=== PATIENT | female | born 1965 | race African-American/Black ===

== ENCOUNTER 2017-04-03 20:20 | Observation (INO) | payer OTHER ==
[~2017-04-03] VITALS: Ht 157.5 cm; Wt 100.7 kg
--- NOTE | 2017-04-03 20:46 | NUR ---
RECEIVED 51 YO FEMALE C/O SYNCOPE EPISODE OBOUT ONE HOUR PSYCHIATRIC ARNP. PT DENIES FEELING DIZZY PRIOR TO PASSING OUT. NO C/O CHEST PAIN. PT REPORTS MILD SHORTNESS OF BREATH.
--- NOTE | 2017-04-03 20:48 | NUR ---
EKG DONE PRIOR TO TRIAGE
[2017-04-03 21:18] LABS: ABSOLUTE BASOPHIL COUNT 0.1 /CUMM (0.0-0.2); ABSOLUTE EOSINOPHIL COUNT 0.1 /CUMM (0.0-0.7); ABSOLUTE GRANULOCYTE CT 4.5 /CUMM (1.4-6.5); ABSOLUTE LYMPH COUNT 3.7 /CUMM (1.2-3.4); ABSOLUTE MONOCYTE COUNT 0.7 /CUMM (0.10-0.60); BASOPHIL % 0.6 % (0.0-2.0); EOSINOPHIL % 1.5 % (0-5); GRANULOCYTE % 49.3 % (42.2-75.2); HEMATOCRIT 39.2 % (37-47); MEAN CORPUSCULAR HGB 28.2 PG (27.0-31.0); MEAN CORPUSCULAR HGB CONC 32.7 G/DL (33.0-37.0); MEAN CORPUSCULAR VOLUME 86.5 FL (81.0-99.0); MEAN PLATELET VOLUME 10.8 FL (7.4-10.4); PLATELET COUNT 239 /CUMM (130-400); RBC DISTRIBUTION WIDTH 13.8 % (11.5-14.5); RED BLOOD CELL CT 4.53 /CUMM (4.20-5.40)
--- NOTE | 2017-04-03 21:18 | ED SYNCOPE COMPLAINT ---
See Addendum History of Present Illness General Chief Complaint: Syncope and Near-Syncope Stated Complaint: SYNCOPE Source: patient, family Exam Limitations: no limitations Vital Signs & Intake/Output Vital Signs & Intake/Output Vital Signs Date Time Temp Pulse Resp B/P B/P Pulse O2 O2 Flow FiO2 Mean Ox Delivery Rate 04/04 0635 97.1 72 16 150/65 99 04/04 0025 97.0 70 20 145/74 98 04/034 Room Air 04/03 2234 97.5 73 18 154/76 97 Room Air 04/03 204 98.8 81 171/85 98 Room Air ED Intake and Output 04/04 0000 04/03 1200 Intake Total Output Total Balance Patient 222 lb Weight Allergies Coded Allergies: No Known Allergies (04/03/17) Triage Note: RECEIVED 51 YO FEMALE C/O SYNCOPE EPISODE OBOUT ONE HOUR REHAB TECH. PT DENIES FEELING DIZZY PRIOR TO PASSING OUT. NO C/O CHEST PAIN. PT REPORTS MILD SHORTNESS OF BREATH. Triage Nurses Notes Reviewed? yes Timing: single episode today Precipitating Factors: CLIMBED 2 FLIGHTS OF STAIRS Episode Description: SEE HPI Loss of Consciousness: prolonged (minutes) Associated Symptoms: shortness of breath, PALPITATIONS HPI: This is a 51-year-old female with history of hypertension and high cholesterol, recently came from [place] in the beginning of March presents to the ER for chief complaint syncopal episode. According to the patient and her son she had climbed up 2 flights of stairs in the basement. The top of the stairs she felt dizzy, short of breath and anxious, and c/o palpitations. She states she then sat down because she felt like she going to pass out son states that she passed out for a minute. She was not diaphoretic. Patient states that she was not confused. No history of sick B before. Denies any chest pain. She is not short of breath right now. Denies any leg pain or cramping. No history of previous DVT or PE. No history of SD in the past before. She is a nonsmoker nondrinker. (FAITH PINTO,LUISA) Past History Travel History Traveled to [place] past 21 day No Medical History Any Pertinent Medical History? see below for history Neurological: NONE EENT: NONE Cardiovascular: hypertension, hyperlipidemia Respiratory: NONE Gastrointestinal: NONE Hepatic: NONE Renal: NONE Musculoskeletal: NONE Psychiatric: NONE Endocrine: NONE Blood Disorders: NONE Cancer(s): NONE Surgical History Surgical History: non-contributory Psychosocial History What is your primary language Korean Tobacco Use: Never used Family History Hx Contributory? No (LUISA CUEVAS MD) Review of Systems Review of Systems Constitutional: Denies: chills, diaphoresis, malaise. EENTM: Reports: no symptoms. Respiratory: Reports: short of breath. Denies: cough, sputum production. Cardiovascular: Reports: palpitations, syncope. Denies: chest pain, peripheral edema. GI: Denies: abdominal pain, nausea, vomiting. Genitourinary: Denies: discharge. Musculoskeletal: Denies: back pain. Skin: Reports: no symptoms. Neurological/Psychological: Denies: ataxia. All Other Systems: Reviewed and Negative (LUISA CUEVAS MD) Physical Exam Physical Exam General Appearance: well developed/nourished, alert, awake Head: atraumatic, normal appearance Eyes: Bilateral: normal appearance, PERRL, EOMI. Ears, Nose, Throat: normal pharynx, hearing grossly normal Neck: normal inspection, supple, full range of motion Respiratory: normal breath sounds, chest non-tender, no respiratory distress Cardiovascular: regular rate/rhythm Gastrointestinal: normal bowel sounds, soft, non-tender Back: normal inspection, normal range of motion Extremities: normal inspection, normal capillary refill, normal range of motion, no edema Psychiatric: awake, alert, oriented x 3 Cranial Nerves: PERRL Coordination/Gait: normal gait Motor/Sensory: no motor/sensory deficits Core Measures ACS in differential dx? Yes CVA/TIA Diagnosis: No Severe Sepsis Present: No Septic Shock Present: No (LUISA CUEVAS MD) Progress Differential Diagnosis: aortic dissection, orthostatic syncope, pulmonary embolus, TIA/CVA, ARHYTHMIA Plan of Care: Orders Procedure Date/time Status Heart Healthy Diet 04/04 B Active Discharge Patient 04/04 0917 Active TROPONIN LEVEL 04/04 043 Complete EKG 04/[address] in observation 04/03 2245 Active ED Holding Orders 04/03 2245 Active Patient Data 04/03 2245 Active Vital Signs 04/03 2245 Active Code Status 04/03 2245 Active Intake & Output 04/03 2200 Active Add-on Test (ER Only) 04/03 2131 Active PARTIAL THROMBOPLASTIN TIME 04/03 2057 Complete PROTHROMBIN TIME 04/03 2057 Complete D-DIMER 04/03 2057 Complete THYROID STIMULATING HORMONE 04/03 2056 Complete MISTAKE 04/03 2041 Active FingerStick- Glucose 04/03 2041 Active TROPONIN LEVEL 04/03 2041 Complete COMPREHENSIVE METABOLIC PANEL 04/03 2041 Complete CBC WITHOUT DIFFERENTIAL 04/03 2041 Complete EKG 04/03 2023 Active Laboratory Tests 04/04/17 0445: Troponin I < 0.01 04/03/172056: PT 10.3, INR 0.98, APTT 30, D-Dimer < 200 04/03/172055: Anion Gap 11, Estimated GFR > 60, BUN/Creatinine Ratio 23.8, Glucose 132 H, Calcium 10.0, Total Bilirubin 0.3, AST 43 H, ALT 60 H, Alkaline Phosphatase 109, Troponin I < 0.01, Total Protein 8.4 H, Albumin 4.7, Globulin 3.7, Albumin /Globulin Ratio 1.3, TSH 5.960 H, CBC w Diff NO MAN DIFF REQ, RBC 4.53, MCV 86.5, MCH 28.2, RDW 13.8, MPV 10.8 H, Gran % 49.3, Lymphocytes % 40.7, Monocytes % 7.9, Eosinophils % 1.5, Basophils % 0.6, Absolute Granulocytes 4.5, Absolute Lymphocytes 3.7 H, Absolute Monocytes 0.7 H, Absolute Eosinophils 0.1 , Absolute Basophils 0.1, PUBS MCHC 32.7 L initial troponin negative. ekg nsr. Patient placed into tele for 23 hr observation. Will repeat troponin/EKG. Discussed with Dr. Perez who will evaluate the patietn in the ER tomorrow morning. (FAITH PINTO,LUISA) Diagnostic Imaging: Viewed by Me: Radiology Read. Discussed w/RAD: Radiology Read. CXR Impression: no acute abnormality, no infiltrates Initial ED EKG: NSR Hand-Off Endorsed To: MELQUIADES LI MD Endorsed Time: 2310 Pending: consult (DR PEREZ), EKG, labs (LUISA CUEVAS MD) Departure Departure Time of Disposition: 2245 Condition: Stable Departure Forms: Customer Survey General Discharge Information (LUISA CUEVAS MD) Departure Disposition: HOME OR SELF CARE Clinical Impression Primary Impression: Syncope and collapse Secondary Impressions: Chest pain, unspecified Qualifiers: Chest pain type: other chest pain Qualified Code: R07.89 - Other chest pain Referrals: Roel PEREZ MD UNKNOWN (PCP/Family) Additional Instructions: Follow-up with Dr. Perez. Return for any concerns. (JESSICA PINTO,JANETH August) ED Attending Observation Initial Observation Note: I have seen and personally examined DELPHINE KENNEDY on 04/03/17 at 2246. I agree with the current emergency department documentation. The disposition (admission or discharge) is uncertain at this time, she needs a period of observation for the following reason(s): [TELE MONITOR, REPEAT TROPONIN, EKG, VITAL SIGNS, CARDIOLOGY CONSULTATION] The ED Nurse caring for this patient has been personally informed as to what the patient is being observed for. (FAITH PINTO,LUISA) Observation Re-Evaluation: I have reevaluated DELPHINE KENNEDY on 04/04/17 at 0137. The physical findings that support the continued need to observe this patient include : pt requires rule-out and will be seen by cards in the AM. (JEN PINTO,MELQUIADES [place]) Observation Discharge: I have reevaluated DELPHINE KENNEDY on 04/04/17 at 0918. The patient is: ([X]): Stable for discharge (): To be admitted to Nursing Floor (): To be placed in Observation on Nursing Floor (): For transfer to other facility The patient was being observed for [patient has been seen and evaluated by Dr. Perez cardiology. Patient is stable for discharge.] As a result of that observation, I have determined [that she may be discharged. ]. (JANETH LOPEZ MD)
--- NOTE | 2017-04-03 21:32 | NUR ---
PT RECIEVED TO ROOM 5. SEEN BY DR CUEVAS. PLACED ON MONITOR. IN NSR
[2017-04-03 21:51] LABS: PT 10.3 SEC (9.4-12.5); PTT 30 SEC (25-37)
--- NOTE | 2017-04-03 21:59 | NUR ---
PT RESTING QUIETLY. COMPLAINING OF VAGUE DISCOMFORT. NO OVERT DISTRESS. PT WORRIED ABOUT CONDITION-REASSURANCE PROVIDED.
--- NOTE | 2017-04-03 22:34 | NUR ---
PT BACK AND FORTH TO BATHROOM WITHOUT DIZZINESS
--- NOTE | 2017-04-03 22:36 | NUR ---
PT STATES SHE TAKES A BLOOD PRESSURE MEDICATION BUT IS NOT SURE OF THE NAME
--- NOTE | 2017-04-03 23:25 | RADIOLOGY REPORT ---
EXAMINATION: XR CHEST CLINICAL INFORMATION: Chest pain, syncope COMPARISON: None TECHNIQUE: 2 views of the chest were obtained. FINDINGS: The lungs are well expanded. There is no focal consolidation, edema, or effusion. No pneumothorax. The cardiomediastinal silhouette is within normal limits. No acute osseous abnormality. Mild degenerative changes in the spine. IMPRESSION: No acute pulmonary findings.
--- NOTE | 2017-04-03 23:52 | NUR ---
SPOKE WITH PT AND FAMILY TO REITERATE PLAN TO KEEP IN ED AND REPEAT TROPONINS AT 0400
--- NOTE | 2017-04-04 00:24 | NUR ---
SETTLED TO SLEEP NO DISTRESS COLOR GOOD UP TO BR WUITHOUT ANY INCREASE IN SYMPTOMS., NO DIZZYNESS NO SYNCOPE, PT AWARE LABS WILL BE DRAWN AT 0430.
--- NOTE | 2017-04-04 04:00 | NUR ---
SLEEPING QUIETLY CM = NSR 50-60 NO ECTOPY
--- NOTE | 2017-04-04 04:35 | NUR ---
REPEAT TROP AND EKG DONE. CM = 60'S NSR
--- NOTE | 2017-04-04 05:52 | NUR ---
PATIENT AWAKE AND AMBULATORY TO BATHROOM W/ STABLE GAIT NOTED. RETURNS TO ROOM, REPLACED ON CONCRETE STONE FABRICATOR, HR: 66 NSR. PATIENT DENIES COMPLAINTS. DENIES ANY DIZZINESS W/ AMBULATION.
[2017-04-04 06:35] VITALS: BP 150/65
--- NOTE | 2017-04-04 07:08 | NUR ---
PT RECIEVED BREAKFAST TRAY
--- NOTE | 2017-04-04 07:24 | NUR ---
ASSUMED CARE OF PT WHO ATE SOME OF HER BREAKFAST. PT AWARE THAT SHE IS WAITING FOR DR PEREZ TO EVALUATE HER. PT HAS NO COMPLAINTS AT THIS TIME AND STATES SHE FEELS BETTER. PT REMAINS NSR ON MONITOR HR 68
--- NOTE | 2017-04-04 08:54 | NUR ---
PT STATES SHE NO LONGER WANTS TO WAIT FOR DR PEREZ. DR LOPEZ AWARE AND IN TO SEE PT.
--- NOTE | 2017-04-04 09:08 | NUR ---
DR PEREZ AT BEDSIDE.
== END 2017-04-04 10:00 ==
LOC: ERH 20:20 → ERHI 22:45
PROVIDERS: ADMIT Emergency Medicine
DX: R55 Syncope and collapse (principal); I10 Essential (primary) hypertension; E78.00 Pure hypercholesterolemia, unspecified; R07.89 Other chest pain
CPT/HCPCS: 6090; 93005; 93010; G0378